=== PATIENT | male | born 1995 | race Asian ===

== ENCOUNTER 2017-10-02 16:01 | Emergency (ER) | payer SELFPAY ==
[~2017-10-02] VITALS: Ht 182.9 cm; Wt 90.9 kg
[2017-10-02 16:10] VITALS: BP 137/67
[2017-10-02 17:41] LABS: BASO % 0.3 % (0.0-2.0); GRAN % 90.4 % (42.2-75.2); HEMATOCRIT 47.3 % (42.0-52.0); HEMOGLOBIN 15.7 g/dl (13.5-18.0); LYMPH # 0.8 (1.2-3.4); LYMPH % 6.8 % (20.0-51.0); MEAN CELL VOLUME 87 fl (80.0-100.0); MEAN CORPUSCULAR HEMOGLOBIN 29 pg (27.0-31.0); MEAN CORPUSCULAR HGB CONC 33 g/dl (33.0-37.0); MEAN PLATELET VOLUME 9.3 fl (7.4-10.4); MONO # 0.2 (0.1-0.6); PLATELET COUNT 287 K/mm3 (130-400); RED BLOOD COUNT 5.41 M/mm3 (4.20-5.60); REDCELL DISTRIBUTION WIDTH-CV 12.6 % (11.5-14.5)
[2017-10-02 17:56] LABS: ALBUMIN 5.3 gm/dL (3.5-5.0); BILIRUBIN,TOTAL 0.8 mg/dL (0.0-1.0); CALCIUM 9.7 mg/dL (8.4-10.2); CREATININE, serum 0.87 mg/dL (0.66-1.25); TOTAL PROTEIN 8.4 gm/dL (6.4-8.2)
[2017-10-02 18:55] VITALS: PULSE 90
== END 2017-10-02 18:57 | disposition home or self-care (01) ==
LOC: COL.ER 16:01
PROVIDERS: Nurse Practitioner
DX: R51 Headache (principal); R11.2 Nausea with vomiting, unspecified
CPT/HCPCS: J1885; J2405; J7030

== ENCOUNTER 2019-05-06 15:21 | Emergency (ER) | payer OTHER ==
[~2019-05-06] VITALS: Ht 190 cm; Wt 90.9 kg
[2019-05-06 15:31] VITALS: BP 127/75; TEMP 98
[2019-05-06 17:21] VITALS: PULSE 86
== END 2019-05-06 17:25 | disposition home or self-care (01) ==
LOC: COL.ER 15:21
DX: G43.909 Migraine, unspecified, not intractable, without status migrainosus (principal)
CPT/HCPCS: J1200; J1885; J2405; J7030